=== PATIENT | female | born 2000 | race Caucasian/White ===

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

== ENCOUNTER → 2019-01-06 | Outpatient (CLI) | payer OTHER ==
--- NOTE | 2019-01-06 12:10 | REP ---
Soft-tissue ultrasound right arm: History: Rule out muscle tear. Right arm swelling and pain. The patient reports pain from mid humerus to mid forearm which developed while doing biceps exercises. Limited range of motion. Sonographic findings: There is no evidence of biceps muscle hematoma. There is a longitudinally oriented fluid collection 1.5 x 0.1 x 0.1 cm at the distal biceps musculotendinous junction. The biceps tendon does not appear retracted. Question biceps tendon strain. The fluid collection is suspicious. Impression: Abnormal ultrasound with small elongate fluid collection at the distal biceps musculotendinous junction. No retraction seen. Suggest MRI study. Electronically Signed by Valdez Hayward MD 01/06/2019 12:26 P
== END ==
LOC: M RAD 10:56
PROVIDERS: ATTEND Physician Assistant Medical
DX: R93.6 Abnormal findings on diagnostic imaging of limbs (principal)

== ENCOUNTER → 2019-03-24 | Outpatient (REF) | payer OTHER ==
[2019-03-24 16:38] LABS: MONO SCRN NEGATIVE (NEGATIVE)
== END ==
LOC: M LAB REF 15:05
PROVIDERS: ATTEND Physician Assistant
DX: J02.9 Acute pharyngitis, unspecified (principal); R53.83 Other fatigue

== ENCOUNTER → 2019-08-22 | Outpatient (REF) | payer OTHER | LOC: M LAB REF 11:34 | PROVIDERS: ATTEND Physician Assistant Medical | DX: J02.9 Acute pharyngitis, unspecified (principal) ==

== ENCOUNTER → 2019-08-27 | Outpatient (REF) | payer OTHER ==
[2019-08-30 08:25] LABS: H PYLORI QUALITATIVE IgG NEGATIVE (NEGATIVE)
== END ==
LOC: M LAB REF 16:28
PROVIDERS: ATTEND Physician Assistant
DX: R10.9 Unspecified abdominal pain (principal); E78.5 Hyperlipidemia, unspecified

== ENCOUNTER → 2020-02-23 | Outpatient (CLI) | payer OTHER | LOC: M LABSMTC 10:03 | PROVIDERS: ATTEND Family Medicine | DX: Z11.59 Encounter for screening for other viral diseases (principal); Z20.828 Contact with and (suspected) exposure to other viral communicable diseases ==